=== PATIENT | female | born 2000 | race Caucasian/White ===

== ENCOUNTER 2018-08-12 11:32 | Observation (INO) ==
[2018-08-12 12:12] LABS: Bilirubin,Urine Negative (Negative); Blood,Urine Large (Negative); Clarity,Urine Turbid (Clear); Color,Urine Yellow (Yellow); Glucose,Urine (UA) Normal (Normal); Ketones,Urine Negative (Negative); Leukocyte Esterase,Urine Moderate (Negative); Nitrite,Urine Negative (Negative); PH,Urine 7.5 pH Units (5.0-8.0); Protein,Urine Trace mg/dL (Neg-Trace); Specific Gravity,Urine 1.013 (1.010-1.025); Urobilinogen,Urine Normal (Normal)
[2018-08-12 12:15] LABS: Bacteria,Urine Moderate per hpf (None-Few); Hyaline Casts,Urine None Seen per lpf (None-Few); RBC,Urine TNTC per hpf (0-3); Squamous Epithelial Cell,Urine Many per lpf (None-Few)
--- NOTE | 2018-08-12 12:35 | OB/GYN Progress Note ---
Date of Encounter: 08/12/18 Time of Encounter: 12:32 - Assessment and Plan (1) 21 weeks gestation of Current Visit: Yes Status: Acute (2) Cramping affecting , antepartum Current Visit: Yes Status: Acute Subjective - Subjective Interval history: 18 year-old G1 presenting at 21w4d with c/o cramping lower abdominal pain that started around 0700 this am. She reports the pain was pretty constant at first but is now every 5-10 minutes. She denies leaking, bleeding, discharge, itching, burning, dysuria, frequency or any other complaints. SHe has an appointment with [facility] at 1:30 today for trisomy 21 on cell free DNA. Antepartum ROS: movement normal, contractions, no loss of fluid, no vaginal bleeding Objective - Exam FHR: auscultation normal FHR comments: 160 BPM Auscultation: bilateral: normal Abdomen: Present: soft, gravid Uterus: Absent: tenderness Comments: SSE with scant, clear-white discharge. Cultures collected - Labs Labs: Abnormal lab results Urine Clarity Turbid (Clear) A 08/12/18 11:50 Urine Blood Large (Negative) H 08/12/18 11:50 Ur Leukocyte Esterase Moderate (Negative) H 08/12/18 11:50 Urine Microscopic RBC TNTC per hpf (0-3) H 08/12/18 11:50 Urine Microscopic WBC 5-15 per hpf (0-3) H 08/12/18 11:50 Ur Squamous Epith Cells Many per lpf (None-Few) H 08/12/18 11:50 Urine Bacteria Moderate per hpf (None-Few) H 08/12/18 11:50 Ur Culture Indicated? NO. (NO) A 08/12/18 11:50
[2018-08-12 12:43] LABS: Amphetamine Screen,Urine Negative ng/mL (Cutoff=1000); Barbiturate Screen,Urine Negative ng/mL (Cutoff=200); Benzodiazepines Screen,Urine Negative ng/mL (Cutoff=200); Cannabinoid Screen,Urine Negative ng/mL (Cutoff = 50); Cocaine Screen,Urine Negative ng/mL (Cutoff= 300); Opiate Screen,Urine Negative ng/mL (Cutoff=300); Phencyclidine Screen,Urine Negative ng/mL (Cutoff=25)
[2018-08-12 14:17] LABS: Candida DNA Not Detected (Not Detect); Gardnerella DNA Not Detected (Not Detect); Trichomonas DNA Not Detected (Not Detect)
== END 2018-08-12 12:54 | disposition home or self-care (01) ==
LOC: 1NENULAB
PROVIDERS: ADMIT Registered Nurse; ATTEND Registered Nurse

== ENCOUNTER → 2018-11-17 20:00 | Observation (INO) ==
[2018-11-17 13:11] LABS: Bilirubin,Urine Negative (Negative); Blood,Urine Negative (Negative); Clarity,Urine Cloudy (Clear); Color,Urine Yellow (Yellow); Glucose,Urine (UA) Normal (Normal); Ketones,Urine Negative (Negative); Leukocyte Esterase,Urine Moderate (Negative); Nitrite,Urine Negative (Negative); PH,Urine 7.5 pH Units (5.0-8.0); Protein,Urine Negative (Neg-Trace); Urobilinogen,Urine Normal (Normal)
[2018-11-17 13:15] LABS: Bacteria,Urine Few per hpf (None-Few); Hyaline Casts,Urine None Seen per lpf (None-Few); RBC,Urine 0-3 per hpf (0-3); Squamous Epithelial Cell,Urine Many per lpf (None-Few); WBC,Urine 15-30 per hpf (0-3)
[2018-11-17 13:17] LABS: Amphetamine Screen,Urine Negative ng/mL (Cutoff=1000); Barbiturate Screen,Urine Negative ng/mL (Cutoff=200); Benzodiazepines Screen,Urine Negative ng/mL (Cutoff=200); Cannabinoid Screen,Urine Negative ng/mL (Cutoff = 50); Cocaine Screen,Urine Negative ng/mL (Cutoff= 300); Opiate Screen,Urine Negative ng/mL (Cutoff=300); Phencyclidine Screen,Urine Negative ng/mL (Cutoff=25)
--- NOTE | 2018-11-17 20:07 | OB/GYN Progress Note ---
Date of Encounter: 11/17/18 Time of Encounter: 20:04 - Assessment and Plan (1) 35 weeks gestation of Current Visit: Yes Status: Acute (2) uterine contractions in third trimester, antepartum Current Visit: No Status: Acute Patient change on initial exam from 4 cm to 5 cm. Cervical exam 4 hours later patient remained 5/90/-1. Patient states contractions are no stronger or more frequent. Discussed options with patient patient initially decided to walk immune, however after 1) uterine for 10 minutes patient came to [facility] and requested to be discharged home. Discharged home with strict labor and when to return to triage precautions. Patient verbalizes understanding. (3) Trisomy 21 of fetus, current , single gestation Current Visit: No Status: Acute Subjective - Subjective Interval history: 35+3 weeks gestation presents to triage with complaints of contractions. Patient states she is been having continued contractions since triage the other day. They have been consistent in frequency today. Reports movement, denies vaginal bleeding or leaking of fluid. Antepartum ROS: movement normal, contractions, no loss of fluid, no vaginal bleeding Objective - Vital Signs Vital Signs: Intake and Output 11/17/18 11/17/18 11/17/18 07:59 15:59 23:59 Other: Weight 84.2 kg Patient Weight 11/17/18 23:59 Weight 84.2 kg - Exam FHR: auscultation normal FHR comments: Baseline 130 Abdomen: Present: soft, gravid Cervical dilation: 5/90/-1/bbow - Labs Labs: Abnormal lab results Urine Clarity Cloudy (Clear) A 11/17/18 12:50 Ur Leukocyte Esterase Moderate (Negative) H 11/17/18 12:50 Urine Microscopic WBC 15-30 per hpf (0-3) H 11/17/18 12:50 Ur Squamous Epith Cells Many per lpf (None-Few) H 11/17/18 12:50 Ur Culture Indicated? YES (NO) A 11/17/18 12:50
== END | disposition home or self-care (01) ==
LOC: 1NENULAB
PROVIDERS: ADMIT Advanced Practice Midwife; ATTEND Advanced Practice Midwife